=== PATIENT | female | born 1950 | race Caucasian/White ===

== ENCOUNTER 2016-04-10 10:49 | Emergency (ER) | payer OTHER ==
[2016-04-10 10:58] VITALS: BMI 17.6
[2016-04-10] MEDS ORDERED: SODIUM CHLORIDE 1,000 ML IV STA (11:46)
--- NOTE | 2016-04-10 11:58 | PDOC ---
History of Present Illness - General Chief Complaint: Pain Stated Complaint: ABD PAIN Time Seen by Provider: 04/10/16 11:19 History Source: Patient Exam Limitations: No Limitations - History of Present Illness Travel History: No Initial Comments: 04/10/16 11:58 65-year-old female with history of lymphoma presents with intermittent abdominal fullness and sharp pain worsened after meals and relieved when passing gas. Patient does have a small appetite and has lost approximately 20 pounds over the past year but has had a, anoscopy 6 months ago which was negative and continues to take Mylanta for symptoms with minimal affect. Patient is an appointment with her doctor next month Dr. Mar. He shouldn't denies fever, chills, dysuria, pain, abdominal distention , right upper quadrant pain, constipation recently, or recent travel. Patient had a normal bowel movement yesterday and denies any rectal bleeding. Timing/Duration: reports: intermittent Quality: reports: moderate, fullness, sharpness Abdominal Pain Onset Location: reports: generalized abdomen Pain Radiation: reports: LLQ Aggravating Factors: improves with: Eating Alleviating Factors: improves with: Passing Gas Past History - Past Medical History Allergies/Adverse Reactions: Allergies Allergy/AdvReac Type Severity Reaction Status Date / Time No Known Allergies Allergy Verified 04/10/16 10:51 Home Medications: Ambulatory Orders Clonazepam [Klonopin] 1 mg PO QID 04/18/15 Levothyroxine [Synthroid -] 50 mcg PO DAILY 01/09/16 Cancer: Yes (lymphoma) Psychiatric Problems: Yes (ANXIETY,depression) Thyroid Disease: Yes (HYPO.) - Surgical History Abdominal Surgery: Yes - Immunization History Immunization Up to Date: Yes (no flu) - Psycho/Social/Smoking Cessation Hx Anxiety: Yes Suicidal Ideation: No Smoking History: Never smoked Have you smoked in the past 12 months: No Information on smoking cessation initiated: No Hx Alcohol Use: No Drug/Substance Use Hx: No Substance Use Type: None Patient Lives Alone: No Lives with/in: spouse/SO Abd/GI Specific PMHX - Complaint Specific PMHX Colitis: No Diverticulitis: No GERD: No Hepatitis: No GI Ulcer Disease: No Review of Systems - Review of Systems Able to Perform ROS?: Yes Constitutional: Yes: Loss of Appetite, Unintentional Wgt. Loss, Unexplained wgt Loss. No: Weakness HEENTM: No: Symptoms Reported Respiratory: No: Symptoms reported Cardiac (ROS): No: Symptoms Reported ABD/GI: Yes: Poor Appetite, Abdominal cramping : No: Symptoms Reported Musculoskeletal: No: Symptoms Reported Integumentary: No: Symptoms Reported Neurological: No: Symptoms reported Psychiatric: Yes: Anxiety Endocrine: No: Symptoms Reported *Physical Exam - Vital Signs Last Vital Signs Temp Pulse Resp BP Pulse Ox 98.7 F 113 H 22 113/70 100 04/10/16 10:52 04/10/16 10:52 04/10/16 10:52 04/10/16 10:52 04/10/16 10:52 - Physical Exam General Appearance: Yes: Nourished, Appropriately Dressed, Thin. No: Apparent Distress HEENT: positive: EOMI, RICARDO. negative: Pale Conjunctivae Neck: positive: Supple Respiratory/Chest: positive: Lungs Clear, Normal Breath Sounds. negative: Respiratory Distress, Accessory Muscle Use Cardiovascular: positive: Regular Rhythm, Regular Rate (90 om monitor). negative: Murmur Gastrointestinal/Abdominal: positive: Normal Bowel Sounds, Soft, Tenderness ( LLQ. Mild epigastric and periumbilical. ). negative: Distended Extremity: negative: Pedal Edema Integumentary: positive: Normal Color, Warm, Moist Neurologic: positive: Motor Strength 5/5 (ambulatory) ED Treatment Course - LABORATORY CBC & Chemistry Diagram: 04/10/16 11:54 04/10/16 11:54 Medical Decision Making - Medical Decision Making 04/10/16 12:08 Patient complains of increased gas, decreased appetite, increased weight over the past year. Patient states the past 3 months pain has increased worsened with eating and relieved with passing gas. Patient states has been taking Mylanta with minimal improvement. Patient with history of lymphoma and states sees a automotive brake specialist twice a year across from [facility]. Patient denies fever, chest pain, bowel complaints urinary complaints, or vomiting. Patient did have left lower quadrant pain on exam. Patient states has not had a CT of the abdomen. Patient ordered for labs, urine, IV fluids and CT of the abdomen and pelvis with by mouth contrast 04/10/16 13:02 Laboratory Tests 11/03/14 11/04/14 07/19/15 07:45 07:00 10:05 WBC 18.8 H D Hgb Hct Plt Count 99 L 125 L D MPV Sodium Potassium Carbon Dioxide Anion Gap BUN Creatinine Random Glucose Calcium Magnesium AST ALT Lipase Urine Blood Urine Nitrite Ur Leukocyte Esterase Urine WBC 01/09/16 04/10/16 04/10/16 15:16 11:48 11:54 WBC 17.7 H 17.9 H Hgb 13.6 Hct 40.6 Plt Count 127 L MPV 11.4 H Sodium Potassium Carbon Dioxide Anion Gap BUN Creatinine Random Glucose Calcium Magnesium AST ALT Lipase Urine Blood 3+ H Urine Nitrite Negative Ur Leukocyte Esterase Negative Urine WBC <1 04/10/16 11:54 WBC Hgb Hct Plt Count MPV Sodium 140 Potassium 4.2 Carbon Dioxide 27 Anion Gap 8 BUN 10 Creatinine 0.7 Random Glucose 131 H D Calcium 9.0 Magnesium 2.1 AST 29 D ALT 22 Lipase 163 Urine Blood Urine Nitrite Ur Leukocyte Esterase Urine WBC patient with history of lymphoma. Baseline labs 04/10/16 15:26 Laboratory Tests 04/10/16 11:54 Neutrophils % 3.0 L Lymphocytes % 83.0 H Monocytes % 2.0 L Band Neutrophils 1.[address] shows nonobstructing right and left renal stone. Timing gallstones layering posterior without wall thickening. Nondistended stomach significantly living evaluation of its wall. There is no evidence small bowel obstruction free fluid free air in the abdomen or pelvis. There is no enlarged retroperitoneal lymph nodes. Patient will be discharged home to follow-up with plate mill mill hand, Eat small frequent meals that are non-gas producing and take simethicone as prescribed today. *DC/Admit/Observation/Transfer Diagnosis at time of Disposition: Gas Lymphoma Qualifiers: Lymphoma type: unspecified type Lymphoma site: unspecified region Qualified Code(s): C85.90 - Non-Hodgkin lymphoma, unspecified, unspecified site Abdominal pain Qualifiers: Abdominal location: left lower quadrant Qualified Code(s): R10.32 - Left lower quadrant pain - Discharge Dispostion Disposition: HOME Condition at time of disposition: Good - Referrals Referrals: Yamini Borges MD [Primary Care Provider] - Silvestre Owens MD [Staff Physician] - - Patient Instructions Printed Discharge Instructions: How to Avoid Gas, Avoiding Gas-producing Foods Additional Instructions: Please follow-up with referred plate mill mill hand and take simethicone as needed for gas. Please avoid gas producing foods as enclosed in your discharge. Otherwise follow-up with your PCP.
[2016-04-10 12:07] LABS: MEAN PLT VOLUME 11.4 fl (7.5-11.1)
[2016-04-10 12:16] LABS: MCH 31.8 pg (25.7-33.7); MCHC 33.5 g/dl (32.0-36.0); PLATELET COUNT 127 K/MM3 (134-434); RDW 12.8 % (11.6-15.6); WHITE BLOOD COUNT 17.9 K/mm3 (4.0-10.0)
[2016-04-10 12:16] LABS: URINE APPEARANCE CLEAR; URINE BILIRUBIN NEGATIVE (NEGATIVE); URINE COLOR LTYELLOW; URINE GLUCOSE (UA) NEGATIVE (NEGATIVE); URINE KETONE NEGATIVE (NEGATIVE); URINE LEUK ESTERASE NEGATIVE (NEGATIVE); URINE NITRITE NEGATIVE (NEGATIVE); URINE PROTEIN NEGATIVE (NEGATIVE); URINE UROBILINOGEN NEGATIVE E.U./dl (0.2-1.0)
[2016-04-10 12:17] LABS: URINE BLOOD 3+ (NEGATIVE)
[2016-04-10 12:22] LABS: URINE MUCUS RARE; URINE RBC 18 /hpf (0-3); URINE WBC <1 /hpf (3-5)
[2016-04-10 12:33] LABS: ALBUMIN 3.9 g/dl (3.4-5.0); ANION GAP 8 (8-16); CO2 27 mmol/L (21-32); CREATININE 0.7 mg/dL (0.55-1.02); GLUCOSE,RANDOM 131 mg/dL (74-106); SGPT/ALT 22 U/L (12-78); TOT PROT 6.4 g/dl (6.4-8.2)
[2016-04-10 12:36] LABS: ALK PHOS 90 U/L (45-117); BILIRUBIN,TOTAL 0.4 mg/dL (0.2-1.0); MAGNESIUM 2.1 mg/dL (1.8-2.4); SGOT/AST 29 U/L (15-37)
[2016-04-10 15:50] VITALS: BP 99/62; PULSE 73; TEMP 98.5
== END 2016-04-10 15:50 | disposition home or self-care (01) ==
LOC: JER 10:49
PROC: 3E0337Z Introduction of Electrolytic and Water Balance Substance into Peripheral Vein, Percutaneous Approach (ICD-10-PCS; principal; 2016-04-10)
DX: R14.1 Gas pain (principal); R10.32 Left lower quadrant pain; E03.9 Hypothyroidism, unspecified; Z85.72 Personal history of non-Hodgkin lymphomas
CPT/HCPCS: 36415; 71010-TC; 74176-TC; 80053; 81003; 81015; 83690; 83735; 85025; 96360; 99284-25; Q9967

== ENCOUNTER 2016-06-27 16:22 | Emergency (ER) | payer OTHER ==
[2016-06-27 16:31] VITALS: BP 112/75; BMI 16.6
--- NOTE | 2016-06-27 18:51 | PDOC ---
"History of Present Illness - General Chief Complaint: Sore Throat Stated Complaint: SORE THROAT Time Seen by Provider: 06/27/16 17:59 History Source: Patient Exam Limitations: No Limitations - History of Present Illness Initial Comments: 06/27/16 19:40 Chief complaint: Sore throat unable to eat anything solid or take pills times one week History of present illness: Patient is a 65-year-old female with a history of SLL and CLL and depression/anxiety/panic disorder here today complaining of inability to swallow foods or solids including her pills except for levothyroxine and chlordiazepoxide for one week. Patient reports that she was seen by her oncologist Dr. Akin Real at [facility] on 06/25 he wrote on a prescription the patient has indolent SLL/CLL with mild lymphocytosis white blood count 01/25/2020 K with normal platelets and hematocrit. She and that she has mild increase tonsil enlargement also part of her LL/CLL. She is just on observation for this. She reports that in the last 2 weeks she has lost 8 pounds. Patient is able to drink liquids without drooling. Patient reports that last night she had difficulty sleeping. She denies any fever or being around anyone sick. Patient denies any shortness of breath, drooling nausea or vomiting. Patient reports that she was seen by her psychiatrist today Dr. Lan Lyons he initially dose of her chlordiazepoxide 10 mg bid on 06/22/16. Patient reports that she had been taking clonazepam in the past and that this was changed due to it not being effective for her anxiety. Pt shown the [facility] TRAVELERS' AID WORKER list she explained that she had started on a higher dose of chlordiazepoxide however was not able to tolerate it due to it making her feel too drowsy and weak. Patient was started on temazepam 05/28/16 for insomnia but stopped this to not liking the effect of this medication in early May. Patient was then changed to diazepam and 06/12/2016 however patient did not tolerate this medication and stopped it and re-saw the psychiatrist who then ordered chlordiazepoxide 10 mg twice a day on 06/22/16. She saw her psychiatrist today due to feeling very anxious he told her to open the capsules of 10 mg chlordiazepoxide and take half four times a day. She denies every stopping benzodiazepine for even one days. He denies any shortness of breath or any need to have to sick in a forward position in order to breath or swallow. Patient denies any chest pain or palpitations. 06/27/16 20:58 06/27/16 21:00 06/28/16 18:16 Timing/Duration: 1 week Severity: mild (for one week ) Associated Symptoms: reports: other (unable to swallow food or pills for one week ) Past History - Past Medical History Allergies/Adverse Reactions: Allergies Allergy/AdvReac Type Severity Reaction Status Date / Time No Known Allergies Allergy Verified 06/27/16 16:31 Home Medications: Ambulatory Orders Clonazepam [Klonopin] 1 mg PO QID 04/18/15 Levothyroxine [Synthroid -] 50 mcg PO DAILY 01/09/16 Simethicone 125 mg PO TID #60 tab.chew 04/10/16 Cancer: Yes (lymphoma) Psychiatric Problems: Yes (ANXIETY,depression) Thyroid Disease: Yes (HYPO.) - Surgical History Abdominal Surgery: Yes - Immunization History Immunization Up to Date: Yes (no flu) - Psycho/Social/Smoking Cessation Hx Anxiety: Yes Suicidal Ideation: No Smoking History: Never smoked Have you smoked in the past 12 months: No Hx Alcohol Use: No Drug/Substance Use Hx: No Substance Use Type: None Review of Systems - Review of Systems Able to Perform ROS?: Yes Constitutional: No: Symptoms Reported HEENTM: Yes: Other (unable to swallowing pills for one week or solid foods) Respiratory: No: Symptoms reported Cardiac (ROS): No: Symptoms Reported ABD/GI: No: Symptoms Reported : No: Symptoms Reported Musculoskeletal: No: Symptoms Reported Integumentary: No: Symptoms Reported Neurological: No: Symptoms reported Psychiatric: Yes: Anxiety, Depression, Other (panic attacks ) Endocrine: No: Symptoms Reported *Physical Exam - Vital Signs Last Vital Signs Temp Pulse Resp BP Pulse Ox 97.8 F 120 H 20 112/75 97 06/27/16 16:28 06/27/16 16:28 06/27/16 16:28 06/27/16 16:28 06/27/16 16:28 - Physical Exam General Appearance: Yes: Appropriately Dressed HEENT: positive: TMs Normal, Pharyngeal Erythema, Tonsillar Erythema (with no uvular deviation ). negative: Tonsillar Exudate Neck: positive: Lymphadenopathy (R), Lymphadenopathy (L) Respiratory/Chest: positive: Lungs Clear, Normal Breath Sounds. negative: Chest Tender, Respiratory Distress Cardiovascular: positive: Regular Rhythm, Regular Rate, S1, S2 Gastrointestinal/Abdominal: positive: Normal Bowel Sounds, Soft. negative: Tender, Organomegaly, Increased Bowel Sounds, Distended, Guarding, Rebound, Tenderness, Hepatomegaly, Spleenomegaly Integumentary: positive: Normal Color Neurologic: positive: Alert, Normal Response, Responsive Medical Decision Making - Medical Decision Making 06/27/16 19:35 06/27/16 19:35 Patient is a 65-year-old female with a history of SLL and CLL and depression/ anxiety/panic disorder here today complaining of inability to swallow foods or solids including her pills except for levothyroxine and chlordiazepoxide for one week. Patient reports that she was seen by her oncologist Dr. Akin eRal at [facility] on 06/25/2016 he wrote on a prescription the patient has indolent SLL/CLL with mild lymphocytosis white blood count 01/24 K with normal platelets and hematocrit. She and that she has mild increase tonsil enlargement also part of her LL/CLL. She is just on observation for this. She reports that in the last 2 weeks she has lost 8 pounds. Patient is able to drink liquids without drooling. Patient reports that last night she had difficulty sleeping. She denies any fever or being around anyone sick. Patient denies any shortness of breath, drooling nausea or vomiting. Patient reports that she was seen by her psychiatrist today Dr. Lan Lyons he initially dose of her chlordiazepoxide 10 mg bid on 06/22/16. Patient reports that she had been taking clonazepam in the past and that this was changed due to it not being effective for her anxiety. Pt shown the [facility] TRAVEL[employer]' A[employer] WORKER list she explained that she had started on a higher dose of chlordiazepoxide however was not able to tolerate it due to it making her feel too drowsy and weak. Patient was started on temazepam 05/28/16 for insomnia but stopped this to not liking the effect of this medication in early May. Patient was then changed to diazepam and 06/12/2016 however patient did not tolerate this medication and stopped it and re-saw the psychiatrist who then ordered chlordiazepoxide 10 mg twice a day on 06/22/16. She saw her psychiatrist today due to feeling very anxious he told her to open the capsules of 10 mg chlordiazepoxide and take half four times a day. She denies every stopping benzodiazepine for even one days. He denies any shortness of breath or any need to have to sick in a forward position in order to breath or swallow. Patient denies any chest pain or palpitations. Pt. has had increased anxiety in last 2 weeks she saw her onocologist on 06/25/16 due to have ability to swallow hold foods or solids he did not notice any cause patient's lab work was done that did not indicate any activation of her SLL or CLL. He indicated that she has had chronic enlarged tonsils that need to be observed for any changes. Difficulty swallowing is most likely due to her increased anxiety since having so many medication changes with benzodiazepines in the last 2 months. 06/27/16 20:58 Chronic enlarged tonsils anxiety PLAN: throat C & S rapid negative xray Soft tissue neck per unable generalized the epiglottis he does notice a slight narrowing tongue base on the lateral lingual tonsils (pt has b/ l chronic tonsil enlargement) CT of thoat could be done to further visulize area if clinically indicated throat C & S rapid negative Pt. is in no apparent distress presently is not drooling does not have any difficulty breathing or swallowing is drinking fluids Pt. is calm pulse currently 100, Will have patient follow up with ear nose and throat for further evaluation Data Detail Level: Printer-Friendly View | Show Extended View Confidential Drug Utilization Report Search Terms: Tomer Valladares, 1950 Search Date: 06/27/2016 07:33:53 PM This report was requested by: Estefania Geiger | Reference #: [id number] Others' Prescriptions Patient Name: Tomer Valladares Date: 1950 Address: [address] [place] [address] Sex: Female Rx Written Rx Dispensed Drug Quantity Days Supply Prescriber Name 06/20/2016 06/22/2016 chlordiazepoxide 10 mg capsule 60 30 Lan Lyons MD 06/11/2016 06/12/2016 diazepam 2 mg tablet 60 30 Lan Lyons MD 05/28/2016 05/28/2016 temazepam 15 mg capsule 30 30 Lan Lyons MD 05/28/2016 05/28/2016 chlordiazepoxide 25 mg capsule 60 30 Lan Lyons MD 04/24/2016 04/25/2016 chlordiazepoxide 25 mg capsule 60 30 Lan Lyons MD 06/27/16 19:35 06/27/16 19:36 06/27/16 19:39 06/27/16 19:39 06/27/16 19:46 06/27/16 20:52 06/27/16 20:55 06/27/16 21:01 06/27/16 21:08 06/28/16 18:24 06/28/16 18:27 06/28/16 18:28 *DC/Admit/Observation/Transfer Diagnosis at time of Disposition: Sore throat - Discharge Dispostion Disposition: HOME Condition at time of disposition: Stable - Referrals Referrals: Yamini Borges MD [Primary Care Provider] - Tu Noland MD [Staff Physician] - - Patient Instructions Additional Instructions: Follow-up with ear nose and throat Dr. Noland for further evaluation You may drink shakes and eat soft foods as tolerated Follow-up with your psychiatrist as previously scheduled in June or sooner if needed Return to emergency room if any difficulty breathing or swallowing or symptoms worsen Patient voiced understanding of discharge instructions and all questions were answered Seguimiento con nariz y garganta en el odo Dr. Noland para mercedes evaluacin posterior Usted puede beber batidos y comer alimentos blandos lenny se tolera Ky un seguimiento con walsh psiquiatra segn lo programado en gustavo o antes si es necesario Vuelva a la althea de emergencias si tiene dificultad para respirar o tragar o los sntomas empeoran Comprensin del paciente sobre las instrucciones de wm y todas las preguntas fueron contestadas"
[2016-06-27 20:51] VITALS: PULSE 100; TEMP 98.4
== END 2016-06-27 21:16 | disposition home or self-care (01) ==
LOC: JERFT 16:22
DX: R13.19 Other dysphagia (principal); J35.1 Hypertrophy of tonsils; Z85.6 Personal history of leukemia; F41.8 Other specified anxiety disorders; F41.0 Panic disorder [episodic paroxysmal anxiety]
CPT/HCPCS: 70360-TC; 87070; 87430; 99281-25

== ENCOUNTER 2016-06-29 10:14 | Emergency (ER) | payer OTHER ==
[2016-06-29 10:51] VITALS: BP 118/62; TEMP 97.6; BMI 16.6
[2016-06-29] MEDS ORDERED: LORazepam 1 MG TABLET PO ONE (11:34)
[2016-06-29] MEDS ORDERED: SODIUM CHLORIDE 1,000 ML IV STA (11:35)
[2016-06-29 11:54] LABS: MCH 31.4 pg (25.7-33.7); MCHC 32.5 g/dl (32.0-36.0); MEAN CELL VOLUME 96.4 fl (80-96); MEAN PLT VOLUME 11.1 fl (7.5-11.1); PLATELET COUNT 178 K/MM3 (134-434); WHITE BLOOD COUNT 21.9 K/mm3 (4.0-10.0)
[2016-06-29] MEDS ORDERED: LORazepam 0.5 MG TABLET ONE (12:07)
--- NOTE | 2016-06-29 12:10 | PDOC ---
History of Present Illness - General Chief Complaint: Shortness of Breath Stated Complaint: REVIST/ THROAT PAIN Time Seen by Provider: 06/29/16 11:04 History Source: Patient, [employer] Used ([id number] ) Exam Limitations: Language Barrier - History of Present Illness Initial Comments: 06/29/16 11:37 65 yr female states history of anxiety, hypothyroidsm presents to ER c/o feeling diff swallowing in her throat. no pain no fever, Pt feeling anxious denies suicidal or homicidal thoughts. Pt currently followed by Dr. Lan Lyons prescribing librium 10mg daily. Pt denies ETOH abuse or any history of ETOH use. Pt states librium is for anxiety. Pt states she has not had her thyroid levels checked in a while. Seen in ER 06/27/16 for same . 06/29/16 12:42 06/29/16 12:57 Severity: moderate Past History - Past Medical History Allergies/Adverse Reactions: Allergies Allergy/AdvReac Type Severity Reaction Status Date / Time No Known Allergies Allergy Verified 06/29/16 10:38 Home Medications: Ambulatory Orders Clonazepam [Klonopin] 1 mg PO QID 04/18/15 Levothyroxine [Synthroid -] 50 mcg PO DAILY 01/09/16 Cancer: Yes (lymphoma) Psychiatric Problems: Yes (ANXIETY,depression) Thyroid Disease: Yes (HYPO.) - Surgical History Abdominal Surgery: Yes - Immunization History Immunization Up to Date: Yes (no flu) - Psycho/Social/Smoking Cessation Hx Anxiety: Yes Suicidal Ideation: No Smoking History: Never smoked Have you smoked in the past 12 months: No Hx Alcohol Use: No Drug/Substance Use Hx: No Substance Use Type: None Review of Systems - Review of Systems Able to Perform ROS?: Yes Is the patient limited Djiboutian proficient: No Constitutional: No: Symptoms Reported HEENTM: Yes: Symptoms Reported, Difficulty Swallowing Respiratory: No: Symptoms reported Cardiac (ROS): No: Symptoms Reported ABD/GI: No: Symptoms Reported : No: Symptoms Reported Musculoskeletal: No: Symptoms Reported Integumentary: No: Symptoms Reported Neurological: No: Symptoms reported *Physical Exam - Vital Signs Last Vital Signs Temp Pulse Resp BP Pulse Ox 97.6 F 123 H 22 118/62 100 06/29/16 10:38 06/29/16 10:38 06/29/16 10:38 06/29/16 10:38 06/29/16 10:38 - Physical Exam General Appearance: Yes: Nourished, Thin, Other (anxious ) HEENT: positive: EOMI, RICARDO, Normal Voice, TMs Normal. negative: Pharyngeal Erythema, Tonsillar Exudate, Tonsillar Erythema Neck: positive: Supple Respiratory/Chest: positive: Lungs Clear, Normal Breath Sounds. negative: Chest Tender Cardiovascular: positive: Regular Rhythm, Tachycardia Gastrointestinal/Abdominal: positive: Normal Bowel Sounds, Soft Musculoskeletal: positive: Normal Inspection Extremity: positive: Normal Capillary Refill, Normal Inspection, Normal Range of Motion Integumentary: positive: Normal Color, Dry, Warm Neurologic: positive: Fully Oriented, Alert, Normal Mood/Affect, Normal Response , Motor Strength 5/5 Deep Tendon Reflexes: Ankle (L): 3+, Ankle (R): 3+, Knee (L): 3+, Knee (R): 3+, Bicep (L): 3+, Bicep (R): 3+, Tricep (L): 3+, Tricep (R): 3+ ED Treatment Course - LABORATORY CBC & Chemistry Diagram: 06/29/16 11:40 06/29/16 11:40 Medical Decision Making - Medical Decision Making 06/29/16 12:14 cc: diff swallowing, decreased appetite , anxious will check labs, fluids ativan 1mg now pt agrees via riprap placing supervisor phone [phone] with the plan of care at bedside and agrees with plan of care 06/29/16 12:43 pt has shown me paperwork from her oncologist Dr. Akin Real [phone] that she saw on 06/25/16 for same. Paperwork shows chronic SLL/CLL with mild leuokocytosis WBC 11-20k normal platelets, HCT. pt is speaking clearly was speaking loudly on the translation phone no distress , pt is not hypoxic I have reviewed the chart from visit 06/27/16. 06/29/16 13:08 pt has received one liter of IVF and feels better HR is 89 after the fluids and medication. 06/29/16 13:40 spoke with ENT in detail on the phone case discussed, xray discussed and no indication for cat scan at this time. ENT will see pt now in the office, all ds inst given via sami translation to and pt and will go to ENT now. *DC/Admit/Observation/Transfer Diagnosis at time of Disposition: Difficulty in swallowing Qualifiers: Dysphagia type: unspecified Qualified Code(s): R13.10 - Dysphagia, unspecified - Discharge Dispostion Disposition: HOME Condition at time of disposition: Improved - Referrals Referrals: Yamini Borges MD [Primary Care Provider] - Tu Noland MD [Staff Physician] - - Patient Instructions Additional Instructions: please go see the ENT doctors now they are expecting you is aware of you coming. please follow with your medical doctor for further care as well
[2016-06-29 12:20] LABS: ALBUMIN 4.5 g/dl (3.4-5.0); ANION GAP 10 (8-16); BILIRUBIN,TOTAL 0.6 mg/dL (0.2-1.0); CALCIUM 9.4 mg/dL (8.5-10.1); CO2 23 mmol/L (21-32); CREATININE 0.7 mg/dL (0.55-1.02); GLUCOSE,RANDOM 97 mg/dL (74-106); SGPT/ALT 168 U/L (12-78)
[2016-06-29 12:38] LABS: PLATELET ESTIMATE ADEQUATE (NORMAL)
[2016-06-29 12:50] LABS: ALK PHOS 91 U/L (45-117); FREE T4 1.36 ng/dl (0.76-1.46); SGOT/AST 68 U/L (15-37); THYROID STIMULATING HORMONE 2.58 uIU/ml (0.358-3.74)
[2016-06-29 12:57] LABS: URINE APPEARANCE CLEAR; URINE BILIRUBIN NEGATIVE (NEGATIVE); URINE BLOOD 2+ (NEGATIVE); URINE COLOR COLORLESS; URINE GLUCOSE (UA) NEGATIVE (NEGATIVE); URINE KETONE NEGATIVE (NEGATIVE); URINE LEUK ESTERASE NEGATIVE (NEGATIVE); URINE NITRITE NEGATIVE (NEGATIVE); URINE PROTEIN NEGATIVE (NEGATIVE); URINE UROBILINOGEN NEGATIVE E.U./dl (0.2-1.0)
[2016-06-29 12:59] LABS: URINE RBC 1 /hpf (0-3); URINE WBC <1 /hpf (3-5)
[2016-06-29 13:11] VITALS: PULSE 89
[2016-06-29 14:35] LABS: URINE MARIJUANA THC NEGATIVE ng/ml (CUTOFF=50)
== END 2016-06-29 13:43 | disposition home or self-care (01) ==
LOC: JERFT 10:14
PROC: 3E0337Z Introduction of Electrolytic and Water Balance Substance into Peripheral Vein, Percutaneous Approach (ICD-10-PCS; principal; 2016-06-29)
DX: R13.10 Dysphagia, unspecified (principal); E03.9 Hypothyroidism, unspecified; F41.9 Anxiety disorder, unspecified; Z85.72 Personal history of non-Hodgkin lymphomas
CPT/HCPCS: 36415; 80053; 80307; 81003; 81015; 84439; 84443; 84481; 85025; 96360; 99281-25

== ENCOUNTER 2016-07-01 12:07 | Emergency (ER) | payer OTHER ==
[2016-07-01 12:15] VITALS: BP 133/89; PULSE 119; TEMP 97.6; BMI 16.5
--- NOTE | 2016-07-01 15:34 | PDOC ---
History of Present Illness - General Chief Complaint: Psychiatric Stated Complaint: REVISIT/ NAUSEA Time Seen by Provider: 07/01/16 15:25 History Source: Patient, Parent(s) Exam Limitations: No Limitations - History of Present Illness Initial Comments: Patient is return to this emergency department complaining of worsened of anxiety. Has been seen twice in this ER this week for same and problems with swallowing, known thyroid disease and scheduled for evaluation from ENT. Daughter who is with patient her right med R been changed secondary to her recent thyroid issues and has a scheduled appointment with her psychiatrist tomorrow. Is requesting some medications to help her relax until tomorrow when she can be seen by her PMD Timing/Duration: constant, getting worse Severity: moderate Associated Symptoms: anxiety Past History - Past Medical History Allergies/Adverse Reactions: Allergies No Known Allergies Allergy (Verified 07/01/16 12:15) Home Medications: Ambulatory Orders Clonazepam [Klonopin] 1 mg PO QID 04/18/15 Levothyroxine [Synthroid -] 50 mcg PO DAILY 01/09/16 Lorazepam [Ativan] 1 mg PO Q8H PRN #5 tablet MDD 3 07/01/16 Psychosocial History: Yes: anxiety, panic attacks - Reproductive History Is Patient Now?: No - Immunization History Immunization Up to Date: Yes (no flu) - Social History Smoking Status: Never smoked *Review of Systems - Review of Systems Able to Perform ROS?: Yes Constitutional: Yes: See HPI, Malaise. No: Symptoms Reported, Chills, Fever, Loss of Appetite HEENTM: Yes: See HPI. No: Symptoms Reported Respiratory: Yes: See HPI. No: Symptoms reported, Cough, Orthopnea Neurological: Yes: See HPI. No: Symptoms reported Psychiatric: Yes: Anxiety, Stressors, Emotional Problems All Other Systems: Reviewed and Negative *Physical Exam - Vital Signs Last Vital Signs Temp Pulse Resp BP Pulse Ox 97.6 F 119 H 20 133/89 98 07/01/16 12:08 07/01/16 12:08 07/01/16 12:08 07/01/16 12:08 07/01/16 12:08 - Physical Exam General Appearance: Yes: Nourished, Appropriately Dressed, Apparent Distress, Mild Distress (able to answer questions appropriately, is very shaky and reports feeling very nervous. Caalmed by daughter) HEENT: positive: RICARDO, Normal ENT Inspection, Normal Voice, TMs Normal Neck: positive: Tender, Supple, Tender lateral (bilateral tenderness with enlarged thyromegaly, consistent with patient's exam this past week) Respiratory/Chest: positive: Lungs Clear, Normal Breath Sounds Cardiovascular: positive: Regular Rhythm Gastrointestinal/Abdominal: positive: Normal Bowel Sounds, Soft. 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 negative: Normal Mood/Affect (anxious, shaking,) Plan - Progress Note Progress Note: 07/01/16 15:52 Persistent anxiety, patient will be given 1 dose of IM Ativan in the emergency department and provided #5 tablets of 1 mg Ativan until she can be evaluated and retreated by her psychiatrist tomorrow. Daughter is with patient who ensures appointment has been made and she will help follow-up. 07/01/16 16:42 *DC/Admit/Observation/Transfer Diagnosis at time of Disposition: Anxiety attack - Discharge Dispostion Disposition: HOME Condition at time of disposition: Stable Admit: No - Patient Instructions Printed Discharge Instructions: DI for Anxiety -- Adult Additional Instructions: Rest, avoid any strenuous activity or exercise Drink lots of fluids, provide low stress environment Ensure follow-up with psychiatry and specialist tomorrow As one half to one tablet every 8 hours of Ativan as needed for continued anxiety
[2016-07-01] MEDS ORDERED: LORAZEPAM CARPU-JECT 2 MG/ML DISP.SYRIN IM ONE (15:43)
[2016-07-01] MEDS ORDERED: LORAZEPAM CARPU-JECT 2 MG/ML DISP.SYRIN ONE (15:51)
== END 2016-07-01 16:02 | disposition home or self-care (01) ==
LOC: JER 12:07
PROC: 3E023NZ Introduction of Analgesics, Hypnotics, Sedatives into Muscle, Percutaneous Approach (ICD-10-PCS; principal; 2016-07-01)
DX: F41.8 Other specified anxiety disorders (principal); E03.9 Hypothyroidism, unspecified
CPT/HCPCS: 96372; 99282-25

== ENCOUNTER 2016-07-12 12:57 | Emergency (ER) | payer OTHER ==
[2016-07-12 13:18] VITALS: BP 112/70; PULSE 109; TEMP 98.2; BMI 19.5
--- NOTE | 2016-07-12 14:17 | PDOC ---
History of Present Illness - General Chief Complaint: RX Refill Stated Complaint: RX REFILL Time Seen by Provider: 07/12/16 13:55 History Source: Patient Exam Limitations: No Limitations - History of Present Illness Initial Comments: 07/12/16 14:16 My Chief complaint: requesting refill of lorazepam 1 mg History of Present ILLness: Patient is a 65-year-old female with a history of SLL and CLL and depression/anxiety/panic disorder here today requesting that a prescription for lorazepam 1 mg every 8 hours be refilled. Pt. reports that this brand of lorazepam does not work for her and she feels anxious. Patient reports that she has been taking it as prescribed every 8 hours. Patient saw her psychiatrist Dr. Kelly Montenegro on 07/09/16 and an rx for wrist pain 1 mg every 8 hours 90 tablets was prescribed and filled at [facility]. Patient reports that this is a different brand even though it is a prescription for generic lorazepam the same that was written on 07/01/2016 and was filled at [facility] pharmacy. She reports feeling anxious in general. She denies difficulty breathing or swallowing. Tried to call her psychiatrist however voicemail full, patient will see him tomorrow. Patient is following with an ear nose and throat doctor for previous problems with difficulty swallowing. Patient denies using any alcohol or any other substances that have not been prescribed patient is taking lorazepam as prescribed. Pt. denies any thoughts to harm herself or anyone else and is not having any hallucinations auditory or visual. 07/12/16 14:19 07/12/16 14:27 07/12/16 14:27 07/12/16 14:28 07/12/16 14:29 07/12/16 14:36 07/12/16 15:24 Timing/Duration: getting worse (anxiety) Severity: mild Associated Symptoms: reports: other (generalized anxiety) Past History - Past Medical History Allergies/Adverse Reactions: Allergies Allergy/AdvReac Type Severity Reaction Status Date / Time No Known Allergies Allergy Verified 07/12/16 13:13 Home Medications: Ambulatory Orders Clonazepam [Klonopin] 1 mg PO QID 04/18/15 Levothyroxine [Synthroid -] 50 mcg PO DAILY 01/09/16 Lorazepam [Ativan] 1 mg PO Q8H PRN #5 tablet MDD 3 07/01/16 Cancer: Yes (lymphoma) Psychiatric Problems: Yes (ANXIETY,depression) Thyroid Disease: Yes (HYPO.) - Surgical History Abdominal Surgery: Yes - Immunization History Immunization Up to Date: Yes (no flu) - Psycho/Social/Smoking Cessation Hx Anxiety: Yes Suicidal Ideation: No Smoking History: Never smoked Have you smoked in the past 12 months: No Hx Alcohol Use: No Drug/Substance Use Hx: No Substance Use Type: None Review of Systems - Review of Systems Able to Perform ROS?: Yes Constitutional: No: Symptoms Reported HEENTM: No: Symptoms Reported Respiratory: No: Symptoms reported Cardiac (ROS): No: Symptoms Reported ABD/GI: No: Symptoms Reported : No: Symptoms Reported Musculoskeletal: No: Symptoms Reported Integumentary: No: Symptoms Reported Neurological: No: Symptoms reported Psychiatric: Yes: Other (anxiety generalized ) *Physical Exam - Vital Signs Last Vital Signs Temp Pulse Resp BP Pulse Ox 98.2 F 109 H 19 112/70 99 07/12/16 13:14 07/12/16 13:14 07/12/16 13:14 07/12/16 13:14 07/12/16 13:14 - Physical Exam General Appearance: Yes: Appropriately Dressed HEENT: positive: Normal ENT Inspection Neck: negative: Lymphadenopathy (R), Lymphadenopathy (L) Respiratory/Chest: positive: Lungs Clear, Normal Breath Sounds. negative: Chest Tender, Respiratory Distress Cardiovascular: positive: Regular Rhythm, Regular Rate, S1, S2 Comments:: 07/12/16 14:34 Psych: good eye contact, cooperative, casually dressed, Mood: "anxious" affect constricted, denies auditory or visual hallucinations or any suicidal or homicidal ideations. Patient is alert and oriented 3, insight and judgement limited, speech normal rate/volume, gait unimpaired. Integumentary: positive: Normal Color Neurologic: positive: Fully Oriented, Alert, Normal Response, Responsive Medical Decision Making - Medical Decision Making Patient is a 65-year-old female with a history of SLL and CLL and depression/ anxiety/panic disorder here today requesting that a prescription for lorazepam 1 mg every 8 hours be refilled. Pt. reports that this brand of lorazepam does not work for her and she feels anxious. Patient reports that she has been taking it as prescribed every 8 hours. Patient saw her psychiatrist Dr. Kelly Montenegro on 07/09/16 and an rx for wrist pain 1 mg every 8 hours 90 tablets was prescribed and filled at [facility]. Patient reports that this is a different brand even though a prescription for lorazepam and generic was written on 07/01/2016 and was filled at [facility] pharmacy. To call her psychiatrist however voicemail patient will see him tomorrow. She denies any difficulty swallowing or breathing presently. Patient is following with an ear nose and throat doctor for previous problems with difficulty swallowing. Anxiety generalized PLAN: She must follow up with her psychiatrist tomorrow lorazepam 1 mg po now Explained to patient that a new prescription for lorazepam could not be written since this was written on 07/09/2016 that she must follow up with her psychiatrist tomorrow 07/12/16 14:15 Search Terms: Tomer Valladares, 1950 Search Date: 07/12/2016 02:15:03 PM This report was requested by: Estefania Geiger | Reference #: [id number] Others' Prescriptions Patient Name: Tomer Valladares Date: 1950 Address: [address] [place] [address] Sex: Female Rx Written Rx Dispensed Drug Quantity Days Supply Prescriber Name 07/09/2016 07/09/2016 lorazepam 1 mg tablet 90 30 Lan Lyons MD 06/20/2016 06/22/2016 chlordiazepoxide 10 mg capsule 60 30 Lan Lyons MD 06/11/2016 06/12/2016 diazepam 2 mg tablet 60 30 Lan Lyons MD 07/12/16 14:24 07/12/16 14:26 07/12/16 14:30 *DC/Admit/Observation/Transfer Diagnosis at time of Disposition: Anxiety, generalized - Discharge Dispostion Disposition: HOME Condition at time of disposition: Stable - Referrals Referrals: Yamini Borges MD [Primary Care Provider] - - Patient Instructions Additional Instructions: You Must follow-up with your psychiatrist tomorrow Return to emergency room if any symptoms worsen Patient voiced understanding of discharge instructions and all questions were answered Debe seguir con walsh psiquiatra maana Regreso a la althea de emergencias si los sntomas empeoran Comprensin del paciente sobre las instrucciones de wm y todas las preguntas fueron contestadas
[2016-07-12] MEDS ORDERED: LORazepam 1 MG TABLET PO ONE (14:25)
[2016-07-12] MEDS ORDERED: LORAZEPAM CARPU-JECT 2 MG/ML DISP.SYRIN ONE (14:33)
[2016-07-12] MEDS ORDERED: LORazepam 0.5 MG TABLET ONE (14:36)
== END 2016-07-12 15:00 | disposition home or self-care (01) ==
LOC: JERFT 12:57
DX: F41.8 Other specified anxiety disorders (principal); E03.9 Hypothyroidism, unspecified; Z85.6 Personal history of leukemia
CPT/HCPCS: 99281-25

== ENCOUNTER 2016-07-27 16:45 | Emergency (ER) | payer OTHER ==
[2016-07-27 16:57] VITALS: TEMP 98.2; BMI 16.2
[2016-07-27] MEDS ORDERED: ALPRAZolam 0.25 MG TABLET PO ONE (17:54)
[2016-07-27] MEDS ORDERED: ALPRAZolam 0.25 MG TABLET ONE (18:05)
[2016-07-27 18:39] LABS: MCH 31.1 pg (25.7-33.7); MCHC 32.5 g/dl (32.0-36.0); MEAN CELL VOLUME 95.7 fl (80-96); MEAN PLT VOLUME 10.6 fl (7.5-11.1); PLATELET COUNT 163 K/MM3 (134-434); RDW 13.4 % (11.6-15.6); WHITE BLOOD COUNT 22.1 K/mm3 (4.0-10.0)
[2016-07-27 19:04] LABS: ANION GAP 6 (8-16); BILIRUBIN,TOTAL 0.3 mg/dL (0.2-1.0); CO2 26 mmol/L (21-32); CREATININE 0.6 mg/dL (0.55-1.02); GLUCOSE,RANDOM 103 mg/dL (74-106); SGOT/AST 23 U/L (15-37); SGPT/ALT 34 U/L (12-78); TOT PROT 6.1 g/dl (6.4-8.2)
--- NOTE | 2016-07-27 19:04 | PDOC ---
*Physical Exam - Vital Signs Last Vital Signs Temp Pulse Resp BP Pulse Ox 98.2 F 113 H 18 108/60 100 07/27/16 16:49 07/27/16 16:49 07/27/16 16:49 07/27/16 16:49 07/27/16 16:49 - Physical Exam Comments: 07/27/16 19:04 The patient was examined by [HYDROMETER FINISHER Stefania] under my direct supervision. I personally evaluated the patient. I concur with the above findings and the plan of care. ED Treatment Course - LABORATORY CBC & Chemistry Diagram: 07/27/16 18:27 07/27/16 18:27 - ADDITIONAL ORDERS Additional order review: 07/27/16 18:27 RBC 4.15 MCV 95.7 MCHC 32.5 RDW 13.4 MPV 10.6 Neutrophils % Y Lymphocytes % Y - Medications Given in the ED: ED Medications Discontinued Medications Generic Name Dose Route Start Last Admin Trade Name Freq PRN Reason Stop Dose Admin Alprazolam 0.5 mg 07/27/16 17:54 07/27/16 18:08 Xanax - PO 07/27/16 17:55 0.5 mg ONCE ONE Administration *DC/Admit/Observation/Transfer Diagnosis at time of Disposition: Anxiety attack - Discharge Dispostion Disposition: HOME - Prescriptions Prescriptions: Alprazolam 0.5 mg PO Q8H PRN #10 tablet MDD 3 tabs PRN Reason: Anxiety - Referrals Referrals: Yamini Borges MD [Primary Care Provider] - 2 Days - Patient Instructions Printed Discharge Instructions: DI for Anxiety -- Adult Additional Instructions: -Take alprazolam as prescribed - DO NOT take this with lorazepam, as discussed. It is being prescribed in place of lorazepam as it seems to work better for you. -Please follow up with Dr. Miller to discuss starting a daily medication. Please also discuss your unintentional weight loss with her. -Return here for chest pain, shortness of breath, palpitations, or any other concerning symptoms.
--- NOTE | 2016-07-27 19:08 | PDOC ---
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 She denies headache, although this was reported in the triage documentation. She denies chest pain, shortness of breath , fevers/chills, or any other physical symptoms. V/s on arrival are notable for P 113. REVIEW OF SYSTEMS: GENERAL/CONSTITUTIONAL: No fever or chills. No weakness. Weight loss; under evaluation by PCP. HEAD, EYES, EARS, NOSE AND THROAT: No change in vision. No ear pain or discharge. No sore throat. CARDIOVASCULAR: No chest pain or palpitations. RESPIRATORY: No cough, wheezing, or shortness of breath. GASTROINTESTINAL: No nausea, vomiting, diarrhea or constipation. GENITOURINARY: No dysuria, frequency, or change in urination. MUSCULOSKELETAL: No joint or muscle swelling or pain. No neck or back pain. SKIN: No rash or easy bruising. NEUROLOGIC: No headache, vertigo, loss of consciousness, or loss of sensation. PSYCHIATRIC: See HPI. ENDOCRINE: No increased thirst. No abnormal weight change. HEMATOLOGIC/LYMPHATIC: No anemia, easy bleeding, or history of blood clots. ALLERGIC/IMMUNOLOGIC: No hives or skin allergy. No latex allergy. PHYSICAL EXAM: GENERAL: The patient is awake, alert, and fully oriented, in no acute distress. HEAD: Normal with no signs of trauma. ENT: Pupils equal, round and reactive to light, extraocular movements intact, sclera anicteric, conjunctiva clear. Neck supple. LUNGS: Clear to auscultation bilaterally. Normal excursion. No respiratory distress or use of accessory muscles. CV: RRR, S1/S2, no MRG. Cap refill < 2 sec. ABDOMEN: Soft, non-distended, non-tender. EXTREMITIES: Normal range of motion, no edema. NEUROLOGICAL: Normal speech, normal gait. CN II-XII grossly intact. PSYCH: Anxious affect. SKIN: Warm, dry, normal turgor, no rashes or lesions noted. Past History - Past Medical History Allergies/Adverse Reactions: Allergies Allergy/AdvReac Type Severity Reaction Status Date / Time No Known Allergies Allergy Verified 07/27/16 16:49 Home Medications: Ambulatory Orders Clonazepam [Klonopin] 1 mg PO QID 04/18/15 Levothyroxine [Synthroid -] 50 mcg PO DAILY 01/09/16 Lorazepam [Ativan] 1 mg PO Q8H PRN #5 tablet MDD 3 07/01/16 Alprazolam 0.5 mg PO Q8H PRN #10 tablet MDD 3 tabs 07/27/16 Cancer: Yes (lymphoma) Psychiatric Problems: Yes (ANXIETY,depression) Thyroid Disease: Yes (HYPO.) - Surgical History Abdominal Surgery: Yes - Immunization History Immunization Up to Date: Yes (no flu) - Psycho/Social/Smoking Cessation Hx Anxiety: Yes (on meds) Suicidal Ideation: No (denies) Smoking History: Never smoked Have you smoked in the past 12 months: No Information on smoking cessation initiated: No Hx Alcohol Use: No Drug/Substance Use Hx: No Substance Use Type: None *Physical Exam - Vital Signs Last Vital Signs Temp Pulse Resp BP Pulse Ox 98.2 F 113 H 18 108/60 100 07/27/16 16:49 07/27/16 16:49 07/27/16 16:49 07/27/16 16:49 07/27/16 16:49 ED Treatment Course - LABORATORY CBC & Chemistry Diagram: 07/27/16 18:27 07/27/16 18:27 - ADDITIONAL ORDERS Additional order review: 07/27/16 18:27 RBC 4.15 MCV 95.7 MCHC 32.5 RDW 13.4 MPV 10.6 Neutrophils % Y Lymphocytes % Y - RADIOLOGY Radiology Studies Ordered: Category Date Time Status CHEST X-RAY PORTABLE* [RAD] Stat Radiology 07/27/16 17:55 Ordered TRANSVAGINAL ULTRASOUND US [US] Stat Ultrasound 07/27/16 18:17 Ordered - Medications Given in the ED: ED Medications Discontinued Medications Generic Name Dose Route Start Last Admin Trade Name Freq PRN Reason Stop Dose Admin Alprazolam 0.5 mg 07/27/16 17:54 07/27/16 18:08 Xanax - PO 07/27/16 17:55 0.5 mg ONCE ONE Administration Medical Decision Making - Medical Decision Making 07/27/16 19:49 A/P: 65 year old female with anxiety, no other focal complaints. -Basic labs sent and notable for WBC 22.1, which appears near her baseline. Patient states this is known to her. -She refuses CXR -Given alprazolam 0.5mg po with relief of symptoms -Repeat HR is 87 -She requests temporary Rx for this as it seems to work better for her; understands not to take this with Lorazepam, agrees to follow up with PCP Saturday for further management. -Return precautions reviewed. *DC/Admit/Observation/Transfer Diagnosis at time of Disposition: Anxiety attack - Discharge Dispostion Disposition: HOME Admit: No - Prescriptions Prescriptions: Alprazolam 0.5 mg PO Q8H PRN #10 tablet MDD 3 tabs PRN Reason: Anxiety - Referrals Referrals: Yamini Borges MD [Primary Care Provider] - 2 Days - Patient Instructions Printed Discharge Instructions: DI for Anxiety -- Adult Additional Instructions: -Take alprazolam as prescribed - DO NOT take this with lorazepam, as discussed. It is being prescribed in place of lorazepam as it seems to work better for you. -Please follow up with Dr. Miller to discuss starting a daily medication. Please also discuss your unintentional weight loss with her. -Return here for chest pain, shortness of breath, palpitations, or any other concerning symptoms.
[2016-07-27 19:18] LABS: ALK PHOS 67 U/L (45-117); CALCIUM 8.7 mg/dL (8.5-10.1); THYROID STIMULATING HORMONE 4.33 uIU/ml (0.358-3.74)
[2016-07-27 19:32] VITALS: BP 112/63; PULSE 87
[2016-07-27] MEDS ORDERED: diphenhydrAMINE HCL 25 MG CAPSULE (FP) PO ONE ×2 (19:53→19:54)
[2016-07-27] MEDS ORDERED: diphenhydrAMINE HCL 12.5 MG/5 ML BULK BOTTLE ONE (19:56)
[2016-07-27 20:49] LABS: PLATELET ESTIMATE ADEQUATE (NORMAL)
[2016-07-27] MEDS ORDERED: LORAZEPAM CARPU-JECT 2 MG/ML DISP.SYRIN IM ONE (21:21)
[2016-07-27] MEDS ORDERED: LORAZEPAM CARPU-JECT 2 MG/ML DISP.SYRIN ONE (21:38)
--- NOTE | 2016-07-28 09:17 | EKG ---
Test Reason : Blood Pressure : / mmHG Vent. Rate : 084 BPM Atrial Rate : 084 BPM P-R Int : 108 ms QRS Dur : 078 ms QT Int : 370 ms P-R-T Axes : 070 -18 049 degrees QTc Int : 437 ms SINUS RHYTHM WITH SHORT NM POSSIBLE LEFT ATRIAL ENLARGEMENT BORDERLINE ECG WHEN COMPARED WITH ECG OF 06-MAY-2010 12:26, NO SIGNIFICANT CHANGE WAS FOUND Confirmed by TOM VELIZ MD ([id number]) on 07/28/2016 9:17:01 AM Referred By: Confirmed By:TOM VELIZ MD
== END 2016-07-27 22:26 | disposition home or self-care (01) ==
LOC: JER 16:45
PROC: 3E023NZ Introduction of Analgesics, Hypnotics, Sedatives into Muscle, Percutaneous Approach (ICD-10-PCS; principal; 2016-07-27)
DX: F41.0 Panic disorder [episodic paroxysmal anxiety] (principal); E03.9 Hypothyroidism, unspecified; C85.90 Non-Hodgkin lymphoma, unspecified, unspecified site; F32.9 Major depressive disorder, single episode, unspecified
CPT/HCPCS: 36415; 80053; 84443; 85025; 93005; 93010; 96372; 99282-25

== ENCOUNTER 2016-08-02 12:42 | Emergency (ER) | payer OTHER ==
[2016-08-02 12:50] VITALS: BP 129/74; PULSE 102; TEMP 98.2; BMI 16.2
--- NOTE | 2016-08-02 14:52 | PDOC ---
History of Present Illness - General Chief Complaint: Psychiatric Stated Complaint: SOB, PAIN Time Seen by Provider: 08/02/16 14:25 History Source: Patient Past History - Past Medical History Allergies/Adverse Reactions: Allergies No Known Allergies Allergy (Verified 08/02/16 12:51) Home Medications: Ambulatory Orders Clonazepam [Klonopin] 1 mg PO QID 04/18/15 Levothyroxine [Synthroid -] 50 mcg PO DAILY 01/09/16 Lorazepam [Ativan] 1 mg PO Q8H PRN #5 tablet MDD 3 07/01/16 Alprazolam 0.5 mg PO Q8H PRN #10 tablet MDD 3 tabs 07/27/16 Alprazolam [Xanax] 0.5 mg PO Q8H PRN #3 tablet MDD 3 08/02/16 Cephalexin [Keflex] 500 mg PO BID #20 capsule 08/02/16 - Immunization History Immunization Up to Date: Yes (no flu) - Social History Smoking Status: Never smoked *Physical Exam - Vital Signs Last Vital Signs Temp Pulse Resp BP Pulse Ox 98.2 F 102 H 22 129/74 99 08/02/16 12:44 08/02/16 12:44 08/02/16 12:44 08/02/16 12:44 08/02/16 12:44 Plan - Laboratory CBC & Chemistry Diagram: 08/02/16 17:13 08/02/16 17:13 *DC/Admit/Observation/Transfer Diagnosis at time of Disposition: Anxiety, generalized UTI (urinary tract infection) Qualifiers: Urinary tract infection type: site unspecified Hematuria presence: without hematuria Qualified Code(s): N39.0 - Urinary tract infection, site not specified - Discharge Dispostion Disposition: HOME Condition at time of disposition: Stable - Prescriptions Prescriptions: Cephalexin [Keflex] 500 mg PO BID #20 capsule Alprazolam [Xanax] 0.5 mg PO Q8H PRN #3 tablet MDD 3 PRN Reason: Anxiety - Referrals Referrals: Yamini Borges MD [Primary Care Provider] - - Patient Instructions Printed Discharge Instructions: Anxiety and Panic Attacks (Alternative Therapy) , DI for Urinary Tract Infection (UTI), DI for Anxiety -- Adult Additional Instructions: You MUST follow up with your primary care doctor to refill your medication for anxiety, as this should be monitored and managed long-term. Please take medication for your UTI as prescribed and finish the entire course of antibiotics. If you experience any chest pain, shortness of breath, dizziness, headache, change in mental status, fever, chills, vomiting, diarrhea, or any new or worsening symptoms, please return to the ER.
[2016-08-02] MEDS ORDERED: ALPRAZolam 0.25 MG TABLET PO PRN (15:17)
[2016-08-02] MEDS ORDERED: ALPRAZolam 0.25 MG TABLET ONE (15:26)
[2016-08-02] MEDS ORDERED: LORAZEPAM CARPU-JECT 2 MG/ML DISP.SYRIN IVPUSH ONE ×2 (16:40→20:37)
--- NOTE | 2016-08-02 16:49 | PDOC ---
[id number] 4d SOB, PAIN Time Seen by Provider: 08/02/16 14:25 History Source: Patient Exam Limitations: No Limitations - History of Present Illness Initial Comments: 08/02/16 16:49 65-year-old female initially sent to fast track for evaluation of chest pressure and upper abdominal pain. Patient also stating she is very anxious and has similar symptoms with anxiety attacks and requesting medication to alleviate her symptoms. Patient states was given Ativan on a prior visit which she took at home as prescribed by her PMD. Patient currently denies palpitations , shortness of breath, diaphoresis, nausea, or weakness. Patient denies drug or alcohol use. patient also with history of lymphoma and hypothyroidism. Presenting Symptoms: Chest Pain Location: reports: substernal Nitro Today/Relief: Yes: no nitro taken today Aspirin Received prior to arrival (Core Measure): Yes: no aspirin today Associated Symptoms: Yes: Abdominal pain, Chest Pain/pressure Past History - Past Medical History Allergies/Adverse Reactions: Allergies Allergy/AdvReac Type Severity Reaction Status Date / Time No Known Allergies Allergy Verified 08/02/16 12:51 Home Medications: Ambulatory Orders Clonazepam [Klonopin] 1 mg PO QID 04/18/15 Levothyroxine [Synthroid -] 50 mcg PO DAILY 01/09/16 Lorazepam [Ativan] 1 mg PO Q8H PRN #5 tablet MDD 3 07/01/16 Alprazolam 0.5 mg PO Q8H PRN #10 tablet MDD 3 tabs 07/27/16 Alprazolam [Xanax] 0.5 mg PO Q8H PRN #3 tablet MDD 3 08/02/16 Cephalexin [Keflex] 500 mg PO BID #20 capsule 08/02/16 Cancer: Yes (lymphoma) Psychiatric Problems: Yes (ANXIETY,depression) Thyroid Disease: Yes (HYPO.) - Surgical History Abdominal Surgery: Yes - Immunization History Immunization Up to Date: Yes (no flu) - Psycho/Social/Smoking Cessation Hx Anxiety: Yes (on meds) Suicidal Ideation: No (denies) Smoking History: Never smoked Have you smoked in the past 12 months: No Hx Alcohol Use: No Drug/Substance Use Hx: No Substance Use Type: Prescribed Patient Lives Alone: No Cardiac Specific PMH - Complaint Specific PMHX GERD: No Review of Systems - Review of Systems Able to Perform ROS?: Yes Constitutional: No: Symptoms Reported HEENTM: No: Symptoms Reported Respiratory: No: Symptoms reported Cardiac (ROS): Yes: Chest Pain, Chest Tightness (bilateral). No: Syncope ABD/GI: Yes: Indigestion (epigastric) : No: Symptoms Reported Musculoskeletal: No: Symptoms Reported Integumentary: No: Symptoms Reported Neurological: No: Weakness, Dizziness Psychiatric: Yes: Anxiety, Sleep Pattern Change, Emotional Problems, Change in Appetite Endocrine: No: Symptoms Reported Hematologic/Lymphatic: No: Symptoms Reported *Physical Exam - Vital Signs Last Vital Signs Temp Pulse Resp BP Pulse Ox 98.2 F 102 H 22 129/74 99 08/02/16 12:44 08/02/16 12:44 08/02/16 12:44 08/02/16 12:44 08/02/16 12:44 - Physical Exam General Appearance: Yes: Nourished, Appropriately Dressed. No: Apparent Distress HEENT: positive: EOMI, RICARDO, Pharynx Normal. negative: Pale Conjunctivae Respiratory/Chest: positive: Lungs Clear, Normal Breath Sounds. negative: Respiratory Distress, Accessory Muscle Use Cardiovascular: positive: Regular Rhythm, Tachycardia. negative: Murmur Vascular Pulses: Dorsalis-Pedis (R): 2+, Doralis-Pedis (L): 2+ Gastrointestinal/Abdominal: positive: Soft. negative: Tenderness Musculoskeletal: negative: CVA Tenderness Extremity: positive: Normal Capillary Refill. negative: Pedal Edema Integumentary: positive: Normal Color, Warm, Moist Neurologic: positive: Motor Strength 5/5 (ambulatory) ED Treatment Course - LABORATORY CBC & Chemistry Diagram: 08/02/16 17:13 08/02/16 17:13 - ADDITIONAL ORDERS Additional order review: 08/02/16 19:19 Blood Culture - Final Blood - Peripheral Venous NO GROWTH AFTER 5 DAYS INCUBATION 08/02/16 19:00 Blood Culture - Final Blood - Peripheral Venous NO GROWTH AFTER 5 DAYS INCUBATION 08/02/16 19:19 Urine Culture - Final Urine - Urine Clean Catch Escherichia Coli 08/02/16 17:13 RBC 4.48 MCV 95.1 MCHC 33.2 RDW 13.2 MPV 10.7 Neutrophils % 6.0 L D Lymphocytes % 80.0 H D Monocytes % 4.0 - Medications Given in the ED: ED Medications Discontinued Medications Generic Name Dose Route Start Last Admin Trade Name Freq PRN Reason Stop Dose Admin Alprazolam 0.5 mg 08/02/16 15:17 08/02/16 15:28 Xanax - PO 0.5 mg Q8H PRN Administration ANXIETY Lorazepam 0.5 mg 08/02/16 16:40 08/02/16 17:07 Ativan Injection - IVPUSH 08/02/16 16:41 0.5 mg ONCE ONE Administration Lorazepam 0.5 mg 08/02/16 20:37 08/02/16 20:58 Ativan Injection - IVPUSH 08/02/16 20:38 0.5 mg ONCE ONE Administration Medical Decision Making - Medical Decision Making 08/02/16 16:55 Patient given to me from fast track complaining of chest tightness upper abdominal indigestion and requesting lorazepam. Patient does have history of anxiety and depression but she also has history of thyroid disease and lymphoma. Patient ordered for cardiac workup, EKG, chest x-ray, TSH, IV Ativan along with urinalysis. 08/02/16 18:52 Laboratory Tests 07/19/15 01/09/16 04/10/16 10:05 15:16 11:54 WBC 18.8 H D 17.7 H 17.9 H Hgb Hct INR Sodium Potassium Chloride Carbon Dioxide Anion Gap BUN Creatinine Creat Clearance w eGFR Random Glucose Calcium AST ALT Creatine Kinase Troponin I TSH 06/29/16 07/27/16 08/02/16 11:40 18:27 17:11 WBC 21.9 H 22.1 H Hgb Hct INR Sodium Potassium Chloride Carbon Dioxide Anion Gap BUN Creatinine Creat Clearance w eGFR Random Glucose Calcium AST ALT Creatine Kinase Troponin I TSH 2.17 D 08/02/16 08/02/16 08/02/16 17:13 17:13 17:13 WBC 25.4 H Hgb 14.2 D Hct 42.6 INR 1.09 Sodium 143 Potassium 3.7 Chloride 108 H Carbon Dioxide 19 L D Anion Gap 16 BUN 8 Creatinine 0.6 Creat Clearance w eGFR > 60 Random Glucose 77 D Calcium 9.2 AST 40 H D ALT 38 Creatine Kinase Troponin I TSH 08/02/16 17:13 WBC Hgb Hct INR Sodium Potassium Chloride Carbon Dioxide Anion Gap BUN Creatinine Creat Clearance w eGFR Random Glucose Calcium AST ALT Creatine Kinase 231 H Troponin I < 0.02 TSH Patient now ordered for lactic acid, urine culture, blood culture, rectal temp, and chest x-ray. Patient has no complaints presently and is resting on stretcher with at bedside. 08/02/16 18:56 Patient states she is normally around 17-21 but 25 is high for her despite her lymphoma. Patient agrees to workup except for chest x-ray since she states has had just one recently and does not want to get more radiation. 08/02/16 19:03 Patient mentioned that she's also been weaned off her lorazepam since Saturday since this psychiatrist and has been feels she's been taking too much medication. Patient is requesting an increase in her medication upon discharge. I have discussed with her that we will not increase her medication normally prescribe her medication she needs to follow-up with her psychiatrist. *DC/Admit/Observation/Transfer Diagnosis at time of Disposition: UTI (urinary tract infection), Anxiety, generalized - Discharge Dispostion Disposition: HOME Condition at time of disposition: Stable - Prescriptions Prescriptions: Cephalexin [Keflex] 500 mg PO BID #20 capsule Alprazolam [Xanax] 0.5 mg PO Q8H PRN #3 tablet MDD 3 PRN Reason: Anxiety - Referrals Referrals: Yamini Borges MD [Primary Care Provider] - - Patient Instructions Printed Discharge Instructions: Anxiety and Panic Attacks (Alternative Therapy) , DI for Urinary Tract Infection (UTI), DI for Anxiety -- Adult Additional Instructions: You MUST follow up with your primary care doctor to refill your medication for anxiety, as this should be monitored and managed long-term. Please take medication for your UTI as prescribed and finish the entire course of antibiotics. If you experience any chest pain, shortness of breath, dizziness, headache, change in mental status, fever, chills, vomiting, diarrhea, or any new or worsening symptoms, please return to the ER.
[2016-08-02] MEDS ORDERED: LORAZEPAM CARPU-JECT 2 MG/ML DISP.SYRIN ONE ×2 (17:06→20:52)
[2016-08-02 17:26] LABS: MCH 31.6 pg (25.7-33.7); MCHC 33.2 g/dl (32.0-36.0); MEAN CELL VOLUME 95.1 fl (80-96); MEAN PLT VOLUME 10.7 fl (7.5-11.1); PLATELET COUNT 183 K/MM3 (134-434); RDW 13.2 % (11.6-15.6); WHITE BLOOD COUNT 25.4 K/mm3 (4.0-10.0)
[2016-08-02 17:39] LABS: INR 1.09 (0.82-1.09)
[2016-08-02 18:02] LABS: ALBUMIN 4.5 g/dl (3.4-5.0); ANION GAP 16 (8-16); BILIRUBIN,TOTAL 0.8 mg/dL (0.2-1.0); CALCIUM 9.2 mg/dL (8.5-10.1); CO2 19 mmol/L (21-32); CREATININE 0.6 mg/dL (0.55-1.02); GLUCOSE,RANDOM 77 mg/dL (74-106); MAGNESIUM 2.1 mg/dL (1.8-2.4); SGOT/AST 40 U/L (15-37); SGPT/ALT 38 U/L (12-78)
[2016-08-02 18:03] LABS: ALK PHOS 77 U/L (45-117); TOT PROT 6.5 g/dl (6.4-8.2)
[2016-08-02 18:05] LABS: TROPONIN I < 0.02 ng/ml (0.00-0.05)
[2016-08-02 19:15] LABS: PLATELET ESTIMATE ADEQUATE (NORMAL)
--- NOTE | 2016-08-02 19:48 | PDOC ---
*Physical Exam - Vital Signs Last Vital Signs Temp Pulse Resp BP Pulse Ox 98.2 F 102 H 22 129/74 99 08/02/16 12:44 08/02/16 12:44 08/02/16 12:44 08/02/16 12:44 08/02/16 12:44 - Physical Exam Comments: 08/02/16 19:44 Sign-out received from outgoing ER provider Eleazar. Pt interviewed and examined. Ancillary studies reviewed. Awaiting lactic acid. Lactic acid WNL. UA positive for UTI. Will discharge patient home with Keflex and Xanax until she can f/u with psych on Saturday. Patient refuses Xanax as she believes that she had a bad reaction the last time she had Xanax. Discussed with patient and family that she must follow up with psych as planned and of signs and symptoms for return to ER. Patient and family verbalized understanding and agrees to plan. ED Treatment Course - LABORATORY CBC & Chemistry Diagram: 08/02/16 17:13 08/02/16 17:13 - ADDITIONAL ORDERS Additional order review: Laboratory Results 08/02/16 08/02/16 08/02/16 17:13 17:13 17:13 INR 1.09 Sodium 143 Potassium 3.7 Chloride 108 H Carbon Dioxide 19 L D Anion Gap 16 BUN 8 Creatinine 0.6 Creat Clearance w eGFR > 60 Random Glucose 77 D Calcium 9.2 Magnesium 2.1 Total Bilirubin 0.8 D AST 40 H D ALT 38 Alkaline Phosphatase 77 Creatine Kinase 231 H CK-MB (CK-2) 2.624 Troponin I < 0.02 Total Protein 6.5 Albumin 4.5 TSH 08/02/16 17:11 INR Sodium Potassium Chloride Carbon Dioxide Anion Gap BUN Creatinine Creat Clearance w eGFR Random Glucose Calcium Magnesium Total Bilirubin AST ALT Alkaline Phosphatase Creatine Kinase CK-MB (CK-2) Troponin I Total Protein Albumin TSH 2.17 D 08/02/16 17:13 RBC 4.48 MCV 95.1 MCHC 33.2 RDW 13.2 MPV 10.7 Neutrophils % 6.0 L D Lymphocytes % 80.0 H D Monocytes % 4.0 - Medications Given in the ED: ED Medications Discontinued Medications Generic Name Dose Route Start Last Admin Trade Name Freq PRN Reason Stop Dose Admin Lorazepam 0.5 mg 08/02/16 16:40 08/02/16 17:07 Ativan Injection - IVPUSH 08/02/16 16:41 0.5 mg ONCE ONE Administration *DC/Admit/Observation/Transfer Diagnosis at time of Disposition: Anxiety, generalized UTI (urinary tract infection) Qualifiers: Urinary tract infection type: site unspecified Hematuria presence: without hematuria Qualified Code(s): N39.0 - Urinary tract infection, site not specified - Discharge Dispostion Disposition: HOME Condition at time of disposition: Stable Admit: No - Prescriptions Prescriptions: Cephalexin [Keflex] 500 mg PO BID #20 capsule Alprazolam [Xanax] 0.5 mg PO Q8H PRN #3 tablet MDD 3 PRN Reason: Anxiety - Referrals Referrals: Yamini Borges MD [Primary Care Provider] - - Patient Instructions Printed Discharge Instructions: DI for Urinary Tract Infection (UTI), DI for Anxiety -- Adult, Anxiety and Panic Attacks (Alternative Therapy) Additional Instructions: You MUST follow up with your primary care doctor to refill your medication for anxiety, as this should be monitored and managed long-term. Please take medication for your UTI as prescribed and finish the entire course of antibiotics. If you experience any chest pain, shortness of breath, dizziness, headache, change in mental status, fever, chills, vomiting, diarrhea, or any new or worsening symptoms, please return to the ER.
[2016-08-02 22:16] LABS: URINE APPEARANCE CLEAR; URINE BILIRUBIN NEGATIVE (NEGATIVE); URINE COLOR LTYELLOW; URINE GLUCOSE (UA) NEGATIVE (NEGATIVE); URINE KETONE NEGATIVE (NEGATIVE); URINE NITRITE NEGATIVE (NEGATIVE); URINE PROTEIN NEGATIVE (NEGATIVE); URINE UROBILINOGEN NEGATIVE E.U./dl (0.2-1.0)
[2016-08-02 22:22] LABS: URINE BLOOD 3+ (NEGATIVE); URINE LEUK ESTERASE 2+ (NEGATIVE)
[2016-08-02 22:26] LABS: URINE MUCUS RARE; URINE RBC 65 /hpf (0-3); URINE WBC 15 /hpf (3-5)
--- NOTE | 2016-08-03 11:07 | EKG ---
Test Reason : Blood Pressure : / mmHG Vent. Rate : 089 BPM Atrial Rate : 089 BPM P-R Int : 116 ms QRS Dur : 076 ms QT Int : 370 ms P-R-T Axes : 079 -20 041 degrees QTc Int : 450 ms POOR DATA QUALITY, INTERPRETATION MAY BE ADVERSELY AFFECTED NORMAL SINUS RHYTHM POSSIBLE LEFT ATRIAL ENLARGEMENT INCOMPLETE RBBB WHEN COMPARED WITH ECG OF 27-JUL-2016 18:45, NO SIGNIFICANT CHANGE WAS FOUND Confirmed by LAN JONES MD ([id number]) on 08/03/2016 11:07:30 AM Referred By: Confirmed By:LAN JONES MD
== END 2016-08-02 22:09 | disposition home or self-care (01) ==
LOC: JER 12:42 → JERFT 12:42 → JER 22:09
PROC: 3E033NZ Introduction of Analgesics, Hypnotics, Sedatives into Peripheral Vein, Percutaneous Approach (ICD-10-PCS; principal; 2016-08-02)
DX: N39.0 Urinary tract infection, site not specified (principal); F41.1 Generalized anxiety disorder; E03.9 Hypothyroidism, unspecified; C85.90 Non-Hodgkin lymphoma, unspecified, unspecified site
CPT/HCPCS: 36415; 80053; 81003; 81015; 82550; 82553; 83605; 83735; 84443; 84484; 85025; 85610; 87040; 87086; 87186; 93005; 93010; 99283-25